=== PATIENT | male | born 1970 | race Caucasian/White ===

== ENCOUNTER 2019-02-08 07:14 | Emergency (ER) | payer BC ==
--- OUTSIDE RECORDS SUMMARY | 2019-02-08 07:24 | XMS REPORT | Continuity of Care Document ---
:1970 External Reference #:[id number] Author Name Anna Flynn, CLOTILDE Address [address] [facility] [place] [address] Care Team Providers Name Role Phone Nori Lopez M.D. Care Team Information Paving Rammer Unavailable Nori Lopez M.D. Primary Care Physician Unavailable Payers Date Identification Numbers Payment Provider Subscriber Effective: 2018 Policy Number: [id number] [employer] PayID: [id number] [address] [address] [place] [address] Effective: 2018 Policy Number: [id number] [employer] Expires: 2019 PayID: [id number] [address] [place] [id number] Advance Directives Description No Information Available Problems Description No Information Family History Description No Information Available Social History Type Date Description Comments Sex Unknown Tobacco Use Start: Unknown Denies Tobacco Use ETOH Use Consumes 1 beer per day Tobacco Use Start: Unknown Nonsmoker Smoking Status Reviewed: 07/13/17 Nonsmoker Allergies, Adverse Reactions, Alerts Description No Known Drug Allergies Medications Medication Date Status Form Strength Qnty SIG Indications Ordering Provider Bupropion HCL 02/03/ Active Tablets 75mg 60tabs 1 by F33.1 Anna Bernardo 2019 mouth Gee, twice SPA THERAPIST daily Qnasl 02/03/ Active Aerosol 80mcg/Act 26.1gm 2 sprays J01.90 Anna Bernardo 2019 in each Gee, nostril SPA THERAPIST daily Duloxetine HCL 11/06/ Active Caps DR 60mg 90caps take 1 F33.1 Eli 2014 Part capsule Caroline, by mouth PCB DESIGNER every day Cephalexin 10/28/ Hx Capsules 500mg 20caps 1 by L02.11 Gely 2014 - mouth Bertha, 11/06/ twice a PCB DESIGNER 2014 day for 7 days No Active 10/09/ Unknown Medications 2014 - 2014 Duloxetine HCL 10/09/ Caps DR 30mg 30caps 1 by F33.1 Alok Redmond, 2015 - Part mouth M.D. 11/06/ every day 2014 Immunizations Description No Information Available Vital Signs Date Vital Result Comment 02/03/2019 10:43am BP Systolic 148 mmHg BP Diastolic 88 mmHg Heart Rate 68 /min Body Temperature 98.6 F Height 70.5 inches 5'10.50" Weight 157.00 lb BMI (Body Mass Index) 22.2 kg/m2 04/12/2018 8:35pm BP Systolic 120 mmHg BP Diastolic 54 mmHg Heart Rate 74 /min Body Temperature 98.6 F Respiratory Rate 17 /min Height 70.5 inches 5'10.50" Weight 154.50 lb BMI (Body Mass Index) 21.9 kg/m2 07/13/2017 11:17am BP Systolic 110 mmHg BP Diastolic 62 mmHg Heart Rate 72 /min Body Temperature 98.3 F Height 70.5 inches 5'10.50" Weight 164.25 lb BMI (Body Mass Index) 23.2 kg/m2 11/06/2015 11:55am BP Systolic 130 mmHg BP Diastolic 70 mmHg Heart Rate 80 /min Respiratory Rate 16 /min Height 70.5 inches 5'10.50" Weight 133.00 lb BMI (Body Mass Index) 18.8 kg/m2 10/28/2015 2:07pm BP Systolic 120 mmHg BP Diastolic 70 mmHg Heart Rate 68 /min Body Temperature 99.0 F Respiratory Rate 18 /min Height 70.5 inches 5'10.50" Weight 135.00 lb BMI (Body Mass Index) 19.1 kg/m2 10/09/2015 1:56pm BP Systolic 110 mmHg BP Diastolic 64 mmHg Heart Rate 60 /min Body Temperature 97.7 F Respiratory Rate 16 /min Height 70.5 inches 5'10.50" Weight 132.00 lb BMI (Body Mass Index) 18.7 kg/m2 Results Description No Information Available Procedures Description No Information Available Encounters Type Date Location Provider Dx Diagnosis Office Visit 04/12/2018 Main Office Eli Velazquez, R59.0 Localized enlarged 8:15p PCB DESIGNER lymph nodes Office Visit 07/13/2017 Main Office Meeta Esposito, F33.1 Major depressive 11:00a SPA THERAPIST disorder, recurrent, moderate Office Visit 11/06/2015 Main Office Alok Redmond M.D. F33.1 Major depressive 12:00p disorder, recurrent, moderate Office Visit 10/28/2015 Main Office Gely Bertha, PCB DESIGNER L02.11 Cutaneous abscess of 1:45p neck Office Visit 10/09/2015 Main Office Alok Remdond M.D. F33.1 Major depressive 2:00p disorder, recurrent, moderate Plan of Treatment Future Appointment(s):03/08/2019 10:30 am - Anna Flynn NP at [facility] Hjowfs6102/03/2019 - Anna Flynn NPF33.1 Major depressive disorder, recurrent, moderateNew Medication:Bupropion HCL 75 mg - 1 by mouth twice dailyComments:Start the wellbutrin and see if that helps with your moodJ01.90 Acute sinusitis, unspecifiedNew Medication:Qnasl 80 mcg/Act - 2 sprays in each nostril dailyComments:Try the steroid nasal medicine and use a humidifier. Let me know if you are worsening into next week.Z91.09 Other allergy status, other than to drugs and biological subComments:Stop the sudafed. If the rash doesn't go away within 5 days please let me know right away so we can change your medication.AllComments:1. Patient has been queried about patient's goals/ preferences and functional/lifestyle goals at relevant visits. If relevant, describe: Has been discussed, noted above2. Treatment goals as explainedto the patient: see above3. Are there barriers to meeting treatment goals? Yes If Yes, please describe: Barriers include possible insurance limits, disease process, and difficulty with lifestyle changes4. Self-Management goals as described to the patient: Yes, see above As always, we strongly encourage a healthy diet and making physical activity a part of your every day life. If you have questions about how or where to start, please contact the office.
[2019-02-08 07:30] VITALS: BP 134/78
--- NOTE | 2019-02-08 08:07 | UC ---
Laceration HPI - HPI Summary HPI Summary: LAST NIGHT WAS HELPING A FRIEND MOVE FURNITURE WHEN A DRESSER FELL ON HIS RIGHT 4TH FINGER. SUSTAINED A LACERATION AND HAS HAD INTERMITTENT BLEEDING SINCE THEN. LAST TDAP MAYBE 5 YEARS AGO BUT PT NOT SURE. - History Of Current Complaint Chief Complaint: UCGeneralIllness Stated Complaint: FINGER LAC Time Seen by Provider: 02/08/19 07:32 Hx Obtained From: Patient Laceration Location: Finger - RIGHT 4TH FINGER Mechanism Of Injury: Blunt Trauma Onset/Duration: Sudden Onset, Lasting Hours, Still Present Severity: Moderate Pain Intensity: 3 Pain Scale Used: 0-10 Numeric Aggravating Factors: Movement Related History: Dominant Hand Right - Allergies/Home Medications Allergies/Adverse Reactions: Allergies Allergy/AdvReac Type Severity Reaction Status Date / Time pseudoephedrine Allergy Rash Verified 02/08/19 07:30 [From [facility]] Home Medications: Home Medications DULoxetine DR CAP* [Cymbalta CAP*] 20 mg PO DAILY 02/08/19 [History Confirmed ] PMH/Surg Hx/FS Hx/Imm Hx Psychological History: Depression - Surgical History Surgical History: Yes Surgery Procedure, Year, and Place: hernia - Family History Known Family History: Positive: Non-Contributory - Social History Alcohol Use: Daily Alcohol Amount: beer Substance Use Type: None Smoking Status (MU): Never Smoked Tobacco - Immunization History Most Recent Tetanus Shot: within 5 years Review of Systems All Other Systems Reviewed And Are Negative: Yes Constitutional: Positive: Negative Skin: Positive: Bruising, Other - LACERATION Respiratory: Positive: Negative Cardiovascular: Positive: Negative Gastrointestinal: Positive: Negative Musculoskeletal: Positive: Decreased ROM, Edema Physical Exam Triage Information Reviewed: Yes Appearance: Well-Appearing, No Pain Distress, Well-Nourished Vital Signs: Initial Vital Signs Temp 97.8 F 02/08/19 07:26 Pulse 64 02/08/19 07:26 Resp 14 02/08/19 07:26 BP 134/78 02/08/19 07:26 Pulse Ox 98 02/08/19 07:26 Vital Signs Reviewed: Yes Eyes: Positive: Conjunctiva Clear ENT: Positive: Hearing grossly normal Neck: Positive: Supple Respiratory: Positive: No respiratory distress, No accessory muscle use Cardiovascular: Positive: Pulses Normal Abdomen Description: Positive: Soft Musculoskeletal: Positive: Edema @ - RIGHT 4TH FINGER Neurological: Positive: Alert Psychological: Positive: Age Appropriate Behavior Skin: Positive: Other - BRUISING DISTAL RIGHT 4TH FINGER. 9MM LACERATION VOLAR SURFACE DISTALLY Laceration Repair - Laceration Repair 1 Description: Linear Laceration Size After Repair: Length (cm) - 0.9CM, Width (mm) - 0MM, Depth (mm) - 3MM Modified For Repair: No Type Injection: Local Anesthesia Used: 1.0% Lido Irrigation With Pressure Irrigation Device: Yes Closure Material: Sutures - 3 SIMPLE INTERRUPTED Closure Method: Single Layer Suture Of: Skin Suture Type: Prolene - 5-0 Diagnostics - Radiology RIGHT 4TH FINGER XRAYS Radiology Interpretation Completed By: Radiologist Summary of Radiographic Findings: SOFT TISSUE SWELLING, NO FRACTURE IS SEEN. Laceration Course/Dx - Diagnosis Provider Diagnosis: Laceration of finger, right Discharge - Sign-Out/Discharge Documenting (check all that apply): Patient Departure All imaging exams completed and their final reports reviewed: Yes - Discharge Plan Condition: Stable Disposition: HOME Patient Education Materials: Finger Laceration (ED) Referrals: Blanca Austin MD [Medical Doctor] - If Needed Additional Instructions: KEEP DRESSINGS IN PLACE AND DRY FOR THE FIRST 24 HRS. THEN YOU MAY REMOVE THE DRESSING AND GENTLY CLEANSE WITH SOAP AND WATER. PAT DRY AND RE-BANDAGE. APPLY THIN LAYER ANTIBIOTIC OINTMENT UNDER BANDAGE FOR FIRST 3-4 DAYS ONLY. CHANGE BANDAGE DAILY AND NEEDED IF IT BECOMES SOILED OR WET. SEEK FOLLOW-UP IF YOU DEVELOP SPREADING REDNESS OF THE SKIN, PURULENT DRAINAGE, FEVER, INCREASED PAIN OR ANY OTHER CONCERNING SYMPTOMS. RETURN TO HAVE YOUR THREE (3) SUTURES REMOVED IN 10 DAYS TETANUS IMMUNIZATION GIVEN (TDAP): You have been given an immunization against tetanus. Please record this in your records. In general, a booster is needed only once every 10 years. The tetanus shot protects against tetanus or "lockjaw," which is a complication of certain wound infections (the tetanus shot cannot protect against the actual infection). The immunization site may become warm and red due to local reaction. If this occurs, apply warm compresses and take aspirin or ibuprofen to reduce inflammation and discomfort. Return for evaluation if the reaction becomes severe. - Billing Disposition and Condition Condition: STABLE Disposition: Home
[2019-02-08] MEDS ORDERED: Lidocaine 1%* 5 ML VIAL INJ ONE (08:23)
[2019-02-08] MEDS ORDERED: Tetan/Diph/Pertus SYR(Tdap)* 0.5 ML SYR(BOOSTRIX) use SYR IM ONE (08:41)
== END 2019-02-08 09:27 | disposition home or self-care (01) ==
LOC: UCEAST 07:14
DX: S61.214A Laceration without foreign body of right ring finger without damage to nail, initial encounter (principal); F32.9 Major depressive disorder, single episode, unspecified; Z79.899 Other long term (current) drug therapy; Z88.8 Allergy status to other drugs, medicaments and biological substances; W20.8XXA Other cause of strike by thrown, projected or falling object, initial encounter; Y92.9 Unspecified place or not applicable
CPT/HCPCS: 12001; 73140; 90471; 90715; 99202; G0463

== ENCOUNTER 2019-02-16 07:09 | Emergency (ER) | payer BC ==
[2019-02-16 07:18] VITALS: BP 131/69
--- NOTE | 2019-02-16 07:30 | UC ---
HPI Wound/Suture Re-check - HPI Summary HPI Summary: here for suture removal , laceration of right 4th finger 8 days ago , had repair done at the urgent care, here to have them removed, the wound is healing well, no discharge, no pain , no redness - History Of Current Complaint Chief Complaint: UCLaceration Stated Complaint: SUTURE REMOVAL Time Seen by Provider: 02/16/19 07:15 Hx Obtained From: Patient Onset/Duration: Gradual Onset, Lasting Days - 8, Still Present Severity: Mild Pain Intensity: 1 Procedure Type: suture removal Surgery Date: 02/08/19 - Allergies/Home Medications Allergies/Adverse Reactions: Allergies Allergy/AdvReac Type Severity Reaction Status Date / Time cat dander Allergy Congestion Verified 02/16/19 07:19 pseudoephedrine Allergy Rash Verified 02/16/19 07:19 [From Sudafed] PMH/Surg Hx/FS Hx/Imm Hx Previously Healthy: Yes - Surgical History Surgical History: Yes Surgery Procedure, Year, and Place: hernia - Family History Known Family History: Positive: Non-Contributory Negative: Diabetes - Social History Alcohol Use: Daily Alcohol Amount: beer Substance Use Type: None Smoking Status (MU): Never Smoked Tobacco - Immunization History Most Recent Tetanus Shot: within 5 years Review of Systems All Other Systems Reviewed And Are Negative: Yes Constitutional: Positive: Negative Eyes: Positive: Negative ENT: Positive: Negative Respiratory: Positive: Negative Is Patient Immunocompromised?: No Physical Exam Triage Information Reviewed: Yes Appearance: Well-Appearing, No Pain Distress, Well-Nourished Vital Signs: Initial Vital Signs Temp 98.7 F 02/16/19 07:15 Pulse 71 02/16/19 07:15 Resp 18 02/16/19 07:15 BP 131/69 02/16/19 07:15 Pulse Ox 98 02/16/19 07:15 Vital Signs Reviewed: Yes Eye Exam: Normal Eyes: Positive: Conjunctiva Clear ENT Exam: Normal ENT: Positive: Normal ENT inspection, Hearing grossly normal, Pharynx normal Neck exam: Normal Respiratory: Positive: Chest non-tender, Lungs clear, Normal breath sounds Cardiovascular: Positive: RRR, No Murmur, Pulses Normal Skin: Positive: Other - right 4th finger laceration 1/2 cm in diameter, 3 sutures intact , wound is healing well, no erythema, no discharge, sutures were removed Course/Dx - Diagnosis Provider Diagnosis: Visit for suture removal Discharge - Sign-Out/Discharge Documenting (check all that apply): Patient Departure All imaging exams completed and their final reports reviewed: No Studies - Discharge Plan Condition: Stable Disposition: HOME Patient Education Materials: Stitches Removal (ED) Referrals: No Primary Care Phys,NOPCP [Primary Care Provider] - If Needed - Billing Disposition and Condition Condition: STABLE Disposition: Home
== END 2019-02-16 07:32 | disposition home or self-care (01) ==
LOC: UCEAST 07:09
DX: S61.214D Laceration without foreign body of right ring finger without damage to nail, subsequent encounter (principal); X58.XXXD Exposure to other specified factors, subsequent encounter